=== PATIENT | male | born 1945 | race Caucasian/White ===

== ENCOUNTER 2023-05-17 13:29 | Emergency (ER) | payer OTHER ==
[2023-05-17 14:37] LABS: Specific Gravity 1.029 (1.005-1.030); Urine Bacteria <20 /HPF (<20); Urine Bilirubin NEGATIVE (Negative); Urine Blood Trace (Negative); Urine Clarity Clear (Clear); Urine Color Yellow (Yellow); Urine Glucose NEGATIVE (Negative); Urine Mucus 3+ /HPF (None Seen); Urine Protein TRACE (Negative); Urine RBC <5 /HPF (None Seen); Urine Urobilinogen Normal (Normal)
[2023-05-17 14:59] LABS: Absolute Lymphocytes (CBC) 1.3 K/uL (0.7-4.9); Lymphocytes % 22.8 % (15.3-44.8); MCV 95.1 fL (80-100); MPV 8.4 fL (7.6-11.3); RBC Red Blood Cell Count 4.73 M/uL (4.33-5.43)
[2023-05-17 15:18] LABS: Albumin 3.7 g/dL (3.4-5.0); Bilirubin Total 0.3 mg/dL (0.2-1.0); Potassium 3.9 mEq/L (3.5-5.1); Protein, Total 7.1 g/dL (6.4-8.2)
--- NOTE | 2023-05-17 17:40 | RAD REPORT ---
EXAM DESCRIPTION: CT - Abdomen Pelvis W Contrast - 05/17/2023 4:53 pm CLINICAL HISTORY: lower abdominal pain, dysuria COMPARISON: No comparisons TECHNIQUE: Thin cut axial CT imaging of the abdomen and pelvis was performed following intravenous a dministration of 100 mL Isovue 300. Multiplanar reformats were generated and reviewed. All CT scans are performed using dose optimization technique as appropriate and may include automated exposure control or mA/KV adjustment according to patient size. FINDINGS: No suspicious findings in the lung bases. The liver, spleen, and pancreas show no suspicious findings. Incidentally noted 1.5 centimeter anteri or right liver lobe fluid density cyst, not fully characterized. Gallbladder is contracted limiting e valuation. No evidence of intra or extrahepatic biliary ductal dilation. Symmetric renal function is seen with no hydronephrosis or suspicious renal mass. Bilateral renal co rtical cysts, the largest is exophytic arising from the mid to lower pole, measuring 6.6 centimeter. 4-5 millimeter calcific focus at the midpole, may represent a small calculus or cyst wall calcificati on No dilated bowel loops or bowel wall thickening. Colonic diverticulosis. Bilateral inguinal hernias c ontaining fat. No free air, free fluid or inflammatory stranding. No suspicious mass or bulky lymphad enopathy. The urinary bladder is without significant finding. Marked prostatomegaly with calcificatio ns. No suspicious bony findings. Grade 1 retrolisthesis of L5 over S1 secondary to facet degenerative h[place] nges IMPRESSION: No acute intra-abdominal process. Marked prostatomegaly, which could contribute to the patient's symptoms. Other incidental Findings as above.
--- NOTE | 2023-05-17 17:45 | EDPHYS ---
Physician Documentation [facility] Name: Galo Farooq Age: 78 yrs Sex: Male : 1945 Arrival Date: 05/17/2023 Time: 13:29 Bed 20 Private MD: Angus Ornelas ED Physician Edmond Rajan HPI: 05/17 13:45 This 78 yrs old Male presents to ER via Ambulatory with complaints of prostate issues. jmm 13:45 The patient presents with urinary symptoms, dysuria, urinary frequency. Onset: The jmm symptoms/episode began/occurred gradually. Modifying factors: The symptoms are alleviated by nothing, the symptoms are aggravated by nothing. This is an 78-year-old male with history of prostatic hyperplasia the presents emerged department with complaints of increased urinary frequency, painful urination also complains of constipation. Denies fever or vomiting.. Historical: - Allergies: 13:37 No Known Allergies; bp - Home Meds: 13:37 finasteride 1 mg oral tablet daily [Active]; bp - PMHx: 13:37 PROSTATE HYPERTROPHY; bp - Immunization history:: Adult Immunizations up to date. - Social history:: Smoking status: Patient denies any tobacco usage or history of. ROS: 13:45 Constitutional: Negative for fever, chills, and weight loss, Cardiovascular: Negative jmm for chest pain, palpitations, and edema, Respiratory: Negative for shortness of breath, cough, wheezing, and pleuritic chest pain. 13:45 : Positive for urinary symptoms. 13:45 All other systems are negative. Exam: 13:45 Constitutional: This is a well developed, well nourished patient who is awake, alert, jmm and in no acute distress. Head/Face: atraumatic. Eyes: EOMI, no conjunctival erythema appreciated ENT: Moist Mucus Membranes Neck: Trachea midline, Supple Chest/axilla: Normal chest wall appearance and motion. Cardiovascular: Regular rate and rhythm. No edema appreciated Respiratory: Normal respirations, no respiratory distress appreciated Abdomen/GI: Non distended Back: Normal ROM Skin: General appearance color normal MS/ Extremity: Moves all extremities, no obvious deformities appreciated, no edema noted to the lower extremities Neuro: Awake and alert Psych: Behavior is normal, Mood is normal, Patient is cooperative and pleasant Vital Signs: 13:38 BP 118 / 66; Pulse 65; Resp 16; Temp 97.8; Pulse Ox 97% ; Weight 72.57 kg; Height 5 ft. bp 5 in. ; 14:45 BP 112 / 67; Pulse 56; Resp 18; Pulse Ox 95% on R/A; ld1 15:58 BP 109 / 60; Pulse 86; Resp 18; Pulse Ox 96% on R/A; ld1 17:14 BP 111 / 75; Pulse 80; Resp 18; Pulse Ox 100% on R/A; ld1 13:38 Body Mass Index 26.63 (72.57 kg, 165.1 cm) bp MDM: 14:13 Patient medically screened. [facility] 18:44 Differential diagnosis: Acute prostatitis, urinary retention, urinary tract infection. [facility] Data reviewed: vital signs, nurses notes, lab test result(s), radiologic studies, CT scan. Consideration of Admission/Observation Escalation of care including admission/observation considered. 18:44 Counseling: I had a detailed discussion with the patient and/or guardian regarding: the [facility] historical points, exam findings, and any diagnostic results supporting the discharge/admit diagnosis, lab results, radiology results, the need for outpatient follow up, to return to the emergency department if symptoms worsen or persist or if there are any questions or concerns that arise at home. ED course: CT and labs were unremarkable. Due to the patient's difficulty with urination tamsulosin was added. Patient is currently taking finasteride. Advised follow with urology for further evaluation otherwise given strict return precautions. Patient understood and agrees to plan of care.. 05/17 13:44 Order name: Urinalysis w/ reflexes; Complete Time: 14:38 [facility] 05/17 14:36 Order name: CBC with Diff; Complete Time: 15:18 [facility] 05/17 14:36 Order name: CMP; Complete Time: 15:18 [facility] 05/17 14:36 Order name: Lipase; Complete Time: 15:18 [facility] 05/17 14:36 Order name: CT Abd/Pelvis - IV Contrast Only; Complete Time: 17:41 [facility] 05/17 14:36 Order name: IV Saline Lock; Complete Time: 14:54 [facility] 05/17 14:36 Order name: Labs collected and sent; Complete Time: 14:54 [facility] 05/17 14:36 Order name: Bladder Scanner; Complete Time: 14:44 [facility] Administered Medications: No medications were administered Disposition: 05/18 09:42 Co-signature as Attending Physician, Edmond Rajan MD I reviewed the patient's care rt provided by the Advanced Practice Provider and agree with the diagnosis and treatment plan. Disposition Summary: 05/17/23 17:45 Discharge Ordered Location: Home [facility] Condition: Stable [facility] Diagnosis - Enlarged prostate with lower urinary tract symptoms [facility] Followup: [facility] - With: Braden Arevalo MD - When: 2 - 3 days - Reason: Recheck today's complaints, Continuance of care, Re-evaluation by your physician Discharge Instructions: - Discharge Summary Sheet [facility] - Benign Prostatic Hyperplasia [facility] Forms: - Medication Reconciliation Form [facility] - Thank You Letter [facility] - Antibiotic Education [facility] - Prescription Opioid Use [facility] - [employer]_Portal_[email or web address].htm [facility] Prescriptions: - tamsulosin 0.4 mg Oral capsule - take 1 capsule by ORAL route every 24 hours for 30 days; 30 capsule; Refills: [facility] 0, Product Selection Permitted Signatures: Dispatcher [employer] Larry Ray PA PA jmm Peltier, Brian, RN RN Edmond Riddle MD MD rt
--- NOTE | 2023-05-17 17:45 | ER ---
Nurse's Notes [facility] Name: Galo Farooq Age: 78 yrs Sex: Male : 1945 Arrival Date: 05/17/2023 Time: 13:29 Bed 20 Private MD: Angus Ornelas Diagnosis: Enlarged prostate with lower urinary tract symptoms Presentation: 05/17 13:38 Chief complaint: Patient states: URINARY HESITANCY AND DYSURIA SINCE TUESDAY. bp Coronavirus screen: At this time, the client does not indicate any symptoms associated with coronavirus-19. Ebola Screen: No symptoms or risks identified at this time. Initial Sepsis Screen: Does the patient meet any 2 criteria? No. Patient's initial sepsis screen is negative. Does the patient have a suspected source of infection? No. Patient's initial sepsis screen is negative. Risk Assessment: Do you want to hurt yourself or someone else? Patient reports no desire to harm self or others. Onset of symptoms is unknown. 13:38 Method Of Arrival: Ambulatory bp 13:38 Acuity: CHLOE 3 bp Triage Assessment: 13:37 General: Appears distressed, uncomfortable, Behavior is cooperative, appropriate for bp age, anxious. Pain: Complains of pain in pelvis. EENT: No deficits noted. Neuro: No deficits noted. Cardiovascular: No deficits noted. Respiratory: No deficits noted. GI: No signs and/or symptoms were reported involving the gastrointestinal system. : Reports burning with urination, inability to void. Derm: No deficits noted. Musculoskeletal: No deficits noted. Historical: - Allergies: 13:37 No Known Allergies; bp - Home Meds: 13:37 finasteride 1 mg oral tablet daily [Active]; bp - PMHx: 13:37 PROSTATE HYPERTROPHY; bp - Immunization history:: Adult Immunizations up to date. - Social history:: Smoking status: Patient denies any tobacco usage or history of. Screenin:46 [facility] ED Fall Risk Assessment (Adult) History of falling in the last 3 months, ld1 including since admission No falls in past 3 months (0 pts). Abuse screen: Denies threats or abuse. Denies injuries from another. Nutritional screening: No deficits noted. Tuberculosis screening: No symptoms or risk factors identified. Assessment: 14:44 Reassessment: Bladder scanner performed - 0 mL of urine in bladder. ld1 14:45 General: Appears in no apparent distress. comfortable, Behavior is calm, cooperative, ld1 appropriate for age. Pain: Denies pain. Neuro: Level of Consciousness is awake, alert, obeys commands, Oriented to person, place, time, situation. Cardiovascular: Capillary refill < 3 seconds Patient's skin is warm and dry. Respiratory: Airway is patent Respiratory effort is even, unlabored. GI: Abdomen is flat, non-distended. : Reports burning with urination, urgency. EENT: No signs and/or symptoms were reported regarding the EENT system. Derm: No signs and/or symptoms reported regarding the dermatologic system. Musculoskeletal: No signs and/or symptoms reported regarding the musculoskeletal system. Vital Signs: 13:38 BP 118 / 66; Pulse 65; Resp 16; Temp 97.8; Pulse Ox 97% ; Weight 72.57 kg; Height 5 ft. bp 5 in. ; 14:45 BP 112 / 67; Pulse 56; Resp 18; Pulse Ox 95% on R/A; ld1 15:58 BP 109 / 60; Pulse 86; Resp 18; Pulse Ox 96% on R/A; ld1 17:14 BP 111 / 75; Pulse 80; Resp 18; Pulse Ox 100% on R/A; ld1 13:38 Body Mass Index 26.63 (72.57 kg, 165.1 cm) bp ED Course: 13:33 Patient arrived in ED. im 13:33 Angus Ornelas DO is Private Physician. im 13:37 Arm band placed on. bp 13:39 Triage completed. bp 13:43 Larry Garcia PA is PHCP. jmm 13:43 Edmond Rajan MD is Attending Physician. jmm 14:28 Urinalysis w/ reflexes Sent. ds4 14:30 Norma Cordoba, VITO is Primary Nurse. ld1 14:46 Patient has correct armband on for positive identification. Placed in gown. Bed in low ld1 position. Call light in reach. Side rails up X2. dry cleaning machine operator on. Pulse ox on. NIBP on. Door closed. Noise minimized. Warm blanket given. 14:46 No provider procedures requiring assistance completed. ld1 14:54 Inserted saline lock: 20 gauge in right antecubital area, using aseptic technique. ld1 Blood collected. 16:55 CT Abd/Pelvis - IV Contrast Only In Process Unspecified. EDMS 17:44 Braden Arevalo MD is Referral Physician. [facility] 18:06 IV discontinued, intact, bleeding controlled, No redness/swelling at site. ld1 Administered Medications: No medications were administered Medication: 14:46 VIS not applicable for this client. ld1 Outcome: 17:45 Discharge ordered by MD. [facility] 18:06 Discharged to home ambulatory. ld1 18:06 Condition: stable 18:06 Discharge instructions given to patient, family, Instructed on discharge instructions, follow up and referral plans. Demonstrated understanding of instructions, follow-up care. 18:06 Patient left the ED. ld1 Signatures: Dispatcher [employer] EDMS Larry Garcia PA PA Malachi Montelongo ds4 Irvin Martinez, VITO RN Norma Hernández RN RN ld1 Lindsey Borrego
[2023-05-17 19:09] VITALS: TEMP 97.8
[2023-05-17 19:13] VITALS: BP 111/75; O2SAT 100
== END 2023-05-17 18:06 | disposition home or self-care (01) ==
LOC: ER 13:29
DX: N40.1 Benign prostatic hyperplasia with lower urinary tract symptoms (principal)
CPT/HCPCS: 85025; 81001; 36415; 83690; 80053; 74177; Q9967

== ENCOUNTER 2025-03-26 09:56 | Emergency (ER) | payer OTHER ==
--- OUTSIDE RECORDS SUMMARY | 2025-03-26 10:02 | XMS REPORT | Continuity of Care Document ---
Author Name Unknown Address [address] [place] [id number] [facility] Address [address] [facility] [address] [place] [address] Care Team Providers Care Music Coordinator Name Role Phone Angus Ornelas Attending Clinician Unavailable [email or web address]_ Attending Clinician Unavail able [email or web address]_ Admitting Clinician Unavail able Encounters Start Date/Time End Date/Time Encounter Type Admission Type Attending Clinicians Care Facility Care Department Encounter ID Source 2024-07-11 09:45:00 Outpatient Johnson Angus [facility] [id number] [facility] 2023-01-07 10:51:03 Outpatient Angus Ornelas [facility] [id number] [facility] 2022-09-23 13:01:02 Outpatient Johnson Angus [facility] [id number] [facility] 2023-02-28 00:00:00 2023-02-28 00:00:00 Outpatient [facility] [id number] [facility]
[2025-03-26 10:48] LABS: Specific Gravity 1.028 (1.005-1.030); Sqamous Epithelial None Seen /HPF (None Seen); Transitional Epithelial <5 /HPF (None Seen); Urine Bacteria 20-50 /HPF (<20); Urine Bilirubin NEGATIVE (Negative); Urine Blood 2+ (Negative); Urine Clarity Extremely Turbid (Clear); Urine Color Yellow (Yellow); Urine Glucose NEGATIVE (Negative); Urine Ketones TRACE (Negative); Urine Micro Reflex YN NO BILL MICROSCOPIC; Urine Mucus 4+ /HPF (None Seen); Urine Nitrite NEGATIVE (Negative); Urine Protein 1+ (Negative); Urine Urobilinogen 1+ (Normal); Urine WBC 20-50 /HPF (<5); Urine pH 5.5 (5.0-7.0)
--- NOTE | 2025-03-26 10:56 | RAD REPORT ---
EXAMINATION: ULTRASOUND DUPLEX OF SCROTUM AND TESTICLES CLINICAL INDICATION: Male, 80 years, right testicular pain and swelling TECHNIQUE: Duplex scan of the scrotal contents was performed including real-time color and spectral D oppler ultrasonography with arterial inflow and venous outflow. COMPARISON: No prior exam. FINDINGS: RIGHT TESTICLE AND EPIDIDYMIS: The right testicle is normal in size, measuring 3.5 x 3.5 x 2.4 cm. There is significant elevated blood flow to the right testicle. No focal mass. Right epididymis demon strates significant elevated blood flow. Color Doppler flow in the right testicle is normal. Complex hydrocele is present, moderate. LEFT TESTICLE AND EPIDIDYMIS: The left testicle is normal in size, measuring 3.9 x 2.8 x 2.5 cm. Small cyst is suspected inferiorly in the left testicle. No aggressive mass evident. Mild rete testes dilatation. The left epididymis is normal. Color Doppler flow in the left testicle is normal. Small chronic hydrocele. IMPRESSION: Significant elevated blood flow detected to the right testicle and epididymis likely indicates right epididymitis-orchitis.
[2025-03-26] MEDS ORDERED: levoFLOXacin 250 MG TAB ONE (11:00)
--- NOTE | 2025-03-26 11:04 | EDPHYS ---
Physician Documentation [facility] Name: Galo Farooq Age: 80 yrs Sex: Male : 1945 Arrival Date: 03/26/2025 Time: 09:56 Bed 18 Private MD: ED Physician Mik Lopez HPI: 03/26 10:14 This 80 yrs old Male presents to ER via Ambulatory with complaints of scrotal pain and rn swelling. 10:14 The patient presents with scrotal pain, of the right side, with swelling. Onset: The rn symptoms/episode began/occurred yesterday. Modifying factors: The symptoms are alleviated by nothing, the symptoms are aggravated by pressure. Severity of symptoms: At their worst the symptoms were moderate, in the emergency department the symptoms are unchanged. The patient has not experienced similar symptoms in the past. Patient reports right scrotal/testicular pain and swelling. No trauma. No fever or chills. Patient reports has prostatomegaly but has never had testicular problem. No difficulty urinating. Hurts to touch and manipulate testicle. Historical: - Allergies: 10:11 No Known Allergies; hb - Home Meds: 10:11 finasteride 1 mg Oral tablet daily [Active]; hb - PMHx: 10:11 prostate hypertrophy; hb - Immunization history:: Adult Immunizations up to date. - Infectious Disease History:: Denies. - Social history:: Smoking status: Patient denies any tobacco usage or history of. - Family history:: not pertinent. - Hospitalizations: : No recent hospitalization is reported. ROS: 10:14 Constitutional: Negative for fever, chills, and weight loss, Abdomen/GI: Negative for rn abdominal pain, nausea, vomiting, diarrhea, and constipation, Back: Negative for injury and pain, : Positive for right testicular and scrotal swelling with pain Exam: 10:14 Constitutional: This is a well developed, well nourished patient who is awake, alert, rn and in no acute distress. Cardiovascular: Regular rate and rhythm. No pulse deficits. Male : Right hemiscrotum with swelling and tenderness, tender near epididymis. No necrosis or signs of cellulitis or extension towards perineum. Vital Signs: 10:10 BP 104 / 64; Pulse 68; Resp 16; Temp 98.3; Pulse Ox 100% on R/A; Pain 3/10; hb 11:07 BP 107 / 66; Pulse 61; Resp 18; Pulse Ox 100% on R/A; mb9 10:10 Pain Scale: Adult hb MDM: 10:04 Medical Screening Exam initiated rn 11:03 Differential diagnosis: UTI, Epididymitis, orchitis. Data reviewed: vital signs, nurses rn notes, lab test result(s), radiologic studies, ultrasound, and as a result, I will discharge patient. Counseling: I had a detailed discussion with the patient and/or guardian regarding the historical points, exam findings, and any diagnostic results supporting the discharge/admit diagnosis, lab results, radiology results, the need for outpatient follow up, to return to the emergency department if symptoms worsen or persist or if there are any questions or concerns that arise at home. Special discussion: I discussed with the patient/guardian in detail that at this point there is no indication for admission to the hospital. It is understood, however, that if the symptoms persist or worsen the patient needs to return immediately for re-evaluation. Based on the history and exam findings, there is no indication for further emergent testing or inpatient evaluation. I discussed with the patient/guardian the need to see the urologist for further evaluation of the symptoms. 11:05 ED course: Pt declines pain medication prescription. . rn 03/26 10:13 Order name: UA W/ Microscopic; Complete Time: 10:51 rn 03/26 10:13 Order name: US Scrotum Testicles; Complete Time: 10:57 rn Administered Medications: 11:02 Drug: LevOfloxacin PO 500 mg PO once Route: PO; mb9 11:07 Follow up: Response: No adverse reaction mb9 Disposition Summary: 03/26/25 11:04 Discharge Ordered Notes: Location: Home rn Problem: new rn Symptoms: have improved rn Condition: Stable rn Diagnosis - Epididymo-orchitis rn Followup: rn - With: Private Physician - When: As needed - Reason: Recheck today's complaints, Re-evaluation by your physician Discharge Instructions: - Discharge Summary Sheet rn - Epididymitis rn - Orchitis rn Forms: - Medication Reconciliation Form rn - Antibiotic diversity intern - Prescription Opioid Use rn - Patient Portal Instructions rn - Leadership Thank You Letter rn Prescriptions: - levofloxacin 500 mg Oral tablet - take 1 tablet ORAL route once daily for 10 days; 10 tablet; Refills: 0, Product rn Selection Permitted Signatures: Dispatcher [employer] EDMS Mik Lopez MD MD rn Baxter, Heather RN Latisha Comer RN RN mb9 Corrections: (The following items were deleted from the chart) 10: 10:14 Scrotum Testicles+US.RAD.BRZ ordered. EDMS EDMS 10: 10:14 UA W/ Microscopic+U.LAB.BRZ ordered. EDMS EDMS
--- NOTE | 2025-03-26 11:04 | ER ---
Nurse's Notes [facility] Name: Galo Farooq Age: 80 yrs Sex: Male : 1945 Arrival Date: 03/26/2025 Time: 09:56 Bed 18 Private MD: Diagnosis: Epididymo-orchitis Presentation: 03/26 10:10 Chief complaint: Right sided testicular swelling and pain x 2 days. Denies hb injury/fever/urinary symptoms. Coronavirus screen: At this time, the client does not indicate any symptoms associated with coronavirus-19. Ebola Screen: No symptoms or risks identified at this time. Initial Sepsis Screen: Does the patient meet any 2 criteria? No. Patient's initial sepsis screen is negative. Does the patient have a suspected source of infection? No. Patient's initial sepsis screen is negative. Risk Assessment: Do you want to hurt yourself or someone else? Patient reports no desire to harm self or others. Onset of symptoms was March 25, 2025. 10:10 Method Of Arrival: Ambulatory hb 10:10 Acuity: CHLOE 3 hb Historical: - Allergies: 10:11 No Known Allergies; hb - Home Meds: 10:11 finasteride 1 mg Oral tablet daily [Active]; hb - PMHx: 10:11 prostate hypertrophy; hb - Immunization history:: Adult Immunizations up to date. - Infectious Disease History:: Denies. - Social history:: Smoking status: Patient denies any tobacco usage or history of. - Family history:: not pertinent. - Hospitalizations: : No recent hospitalization is reported. Screenin:49 [facility] ED Fall Risk Assessment (Adult) History of falling in the last 3 months, mb9 including since admission No falls in past 3 months (0 pts) Confusion or Disorientation No (0 pts) Intoxicated or Sedated No (0 pts) Impaired Gait No (0 pts) Mobility Assist Device Used No (0 pt) Altered Elimination No (0 pt) Score/Fall Risk Level 0 - 2 = Low Risk Oriented to surroundings, Maintained a safe environment, Educated pt \T\ family on fall prevention, incl call for assistance when getting out of bed. Abuse screen: Denies threats or abuse. Nutritional screening: No deficits noted. Tuberculosis screening: No symptoms or risk factors identified. Assessment: 10:15 General: Appears in no apparent distress. Pain: Complains of pain in pelvis Pain does mb9 not radiate. Quality of pain is described as aching, crampy. Neuro: Jose Agitation-Sedation Scale (RASS): 0 - Alert and Calm Level of Consciousness is awake, alert, obeys commands, Oriented to person, place, time, situation, Appropriate for age. Cardiovascular: Patient's skin is warm and dry. Respiratory: Airway is patent Respiratory effort is even, unlabored, Respiratory pattern is regular, symmetrical. GI: No signs and/or symptoms were reported involving the gastrointestinal system. : Reports pain in right testicle. EENT: No signs and/or symptoms were reported regarding the EENT system. Derm: Skin is pink, warm \T\ dry. Musculoskeletal: Range of motion: intact in all extremities. 11:02 Reassessment: No changes from previously documented assessment. Patient and/or family mb9 updated on plan of care and expected duration. Pain level reassessed. Patient is alert, oriented x 3, equal unlabored respirations, skin warm/dry/pink. Vital Signs: 10:10 BP 104 / 64; Pulse 68; Resp 16; Temp 98.3; Pulse Ox 100% on R/A; Pain 3/10; hb 11:07 BP 107 / 66; Pulse 61; Resp 18; Pulse Ox 100% on R/A; mb9 10:10 Pain Scale: Adult hb ED Course: 10:03 Patient arrived in ED. al6 10:03 Mik Lopez MD is Attending Physician. rn 10:06 Latisha Garcia, VITO is Primary Nurse. mb9 10:11 Triage completed. hb 10:12 Arm band placed on. hb 10:15 Placed in gown. Bed in low position. Call light in reach. Side rails up X 1. Provided mb9 Education on: press call light if needing anything. Client placed on continuous cardiac and pulse oximetry monitoring. NIBP monitoring applied. 10:45 US Scrotum Testicles In Process Unspecified. EDMS 10:50 No provider procedures requiring assistance completed. mb9 11:02 Patient did not have IV access during this emergency room visit. mb9 Administered Medications: 11:02 Drug: LevOfloxacin PO 500 mg PO once Route: PO; mb9 11:07 Follow up: Response: No adverse reaction mb9 Medication: 10:49 VIS not applicable for this client. mb9 Outcome: 11:04 Discharge ordered by . vito 11:07 Discharged to home ambulatory, elysia9 11:07 Condition: stable 11:07 Discharge instructions given to patient, Instructed on discharge instructions, follow up and referral plans. Demonstrated understanding of instructions, follow-up care, medications, Prescriptions given X 1, :08 Patient left the ED. mb9 Signatures: Dispatcher [employer] EDMS Mik Lopez MD MD rn Baxter, Heather, RN RN hb Wilkerson, Mary Beth, RN RN mb9 Juanita Bee
== END 2025-03-26 11:08 | disposition home or self-care (01) ==
LOC: ER 09:56
DX: N45.3 Epididymo-orchitis (principal)
CPT/HCPCS: 76870; 81001; 99283

== ENCOUNTER 2025-07-01 03:07 | Emergency (ER) | payer OTHER ==
--- OUTSIDE RECORDS SUMMARY | 2025-07-01 03:09 | XMS REPORT | Continuity of Care Document ---
Author Name Unknown Address [address] [place] [id number] [place] [address] Address [address] [facility] [address] [place] [address] Care Team Providers Care Cloth Booker Name Role Phone Angus Ornelas Attending Clinician Unavailable Encounters Start Date/Time End Date/Time Encounter Type Admission Type Attending Clinicians Care Facility Care Department Encounter ID Source 2024-07-11 09:45:00 Outpatient Angus Ornelas [facility] [id number] [facility] 2023-01-07 10:51:03 Outpatient Angus Ornelas [facility] [id number] [facility] 2022-09-23 13:01:02 Outpatient Angus Ornelas [facility] [id number] [facility]
[2025-07-01 04:05] LABS: Absolute Lymphocytes (CBC) 1.2 K/uL (0.7-4.9); Hematocrit 43.8 % (39.6-49.0); Hemoglobin 15.2 g/dL (13.6-17.9); MCH 33.5 pg (27.0-35.0); MCHC 34.7 g/dL (32.0-36.0); MCV 96.4 fL (80-100); MPV 8.1 fL (7.6-11.3); Nucleated RBC Absolute Count 0.0 (0-0); Nucleated Red Blood Cells % 0.2 % (0-0); RBC Red Blood Cell Count 4.55 M/uL (4.33-5.43); White Blood Count 6.90 thou/uL (4.3-10.9)
[2025-07-01 04:10] LABS: Anion Gap 8.8 mEq/L (5.0-15.0); BUN Blood Urea Nitrogen 32.0 mg/dL (7-18); Glucose Level 110.0 mg/dL (74-106); Potassium 3.8 mEq/L (3.5-5.1)
[2025-07-01 05:24] LABS: Sqamous Epithelial <5 /HPF (None Seen); Urine Culture Reflex Order NOT NEEDED; Urine Microscopic Reflex YN ORDER UMIC; Urine Yeast (Budding) Trace /HPF (None Seen)
--- NOTE | 2025-07-01 05:30 | EDPHYS ---
Physician Documentation [facility] Name: Galo Farooq Age: 80 yrs Sex: Male : 1945 Arrival Date: 07/01/2025 Time: 03:07 Bed 14 Private MD: [facility] ED Physician Faisal Cordoba HPI: 07/01 04:25 This 80 yrs old Male presents to ER via Ambulatory with complaints of Urinary Retention.ms3 04:25 80-year-old male with past medical history of benign prostatic hyperplasia, arthritis, ms3 glaucoma presents to the emergency department for urinary retention. Patient states on he began having problems urinating and yesterday became unable to urinate. Patient states his discomfort is a 10/10 described as pressure. Patient states the pain is worse with movement or trying to pee. Patient notes he has been out of his tamsulosin for 2 days.. Historical: - Allergies: 03:47 No Known Allergies; tb4 - Home Meds: 03:47 finasteride 1 mg Oral tablet daily [Active]; methotrexate sodium 2.5 mg oral tablet 6 tb4 tabs every week [Active]; tamsulosin 0.4 mg oral capsule 1 cap daily [Active]; Timoptic Opht [Active]; bimatoprost 0.01 % ophthalmic (eye) drops [Active]; - PMHx: 03:47 prostate hypertrophy; Arthritis; Glaucoma; tb4 - PSHx: 03:47 Right Shoulder; tb4 - Immunization history:: Adult Immunizations up to date. - Infectious Disease History:: Denies. - Social history:: Smoking status: Patient denies any tobacco usage or history of. Patient/guardian denies using alcohol, occasional beer. ROS: 04:25 Constitutional: Negative for fever, and chills. Cardiovascular: Negative for chest ms3 pain, and palpitations. Respiratory: Negative for shortness of breath, cough, wheezing, and pleuritic chest pain, MS/Extremity: Negative for injury and deformity, Skin: Negative for injury, rash, and discoloration, 04:25 Abdomen/GI: Positive for abdominal pain, 04:25 : Positive for Urinary retention, Exam: 04:25 Constitutional: This is a well developed, well nourished patient who is awake, alert, ms3 and in no acute distress. Cardiovascular: Regular rate and rhythm with a normal S1 and S2. No gallops, murmurs, or rubs. Normal PMI, no JVD. No pulse deficits. Respiratory: Lungs have equal breath sounds bilaterally, clear to auscultation and percussion. No rales, rhonchi or wheezes noted. No increased work of breathing, no retractions or nasal flaring. 04:25 Skin: Warm, dry with normal turgor. Normal color with no rashes, no lesions, and no evidence of cellulitis. 04:25 Abdomen/GI: Inspection: abdomen appears normal, Bowel sounds: normal, Palpation: moderate abdominal tenderness, in the suprapubic area, Vital Signs: 03:42 BP 145 / 89; Pulse 58; Resp 17; Temp 98.1(O); Pulse Ox 98% on R/A; Weight 72.57 kg; tb4 Height 5 ft. 4 in. ; Pain 0/10; 03:56 BP 145 / 89; Pulse 58; Resp 18; Temp 98.1(O); Pulse Ox 98% on R/A; Weight 72.57 kg; tb4 Height 5 ft. 4 in. ; Pain 0/10; 04:54 BP 127 / 62; Pulse 59; Resp 18; Pulse Ox 99% on R/A; Pain 0/10; tb4 06:00 BP 103 / 50; Pulse 77; Resp 16 S; Pulse Ox 100% on R/A; ss12 03:56 Body Mass Index 27.46 (72.57 kg, 162.56 cm) tb4 03:42 Pain Scale: Adult tb4 03:56 Pain Scale: Adult tb4 04:54 Pain Scale: Adult tb4 MDM: 03:14 Medical Screening Exam initiated ms3 04:25 Differential diagnosis: UTI, urinary retention. ms3 05:32 Data reviewed: vital signs, nurses notes, lab test result(s), and as a result, I will ms3 discharge patient. Counseling: I had a detailed discussion with the patient and/or guardian regarding the historical points, exam findings, and any diagnostic results supporting the discharge/admit diagnosis, lab results, the need for outpatient follow up, to return to the emergency department if symptoms worsen or persist or if there are any questions or concerns that arise at home. Special discussion: I discussed with the patient/guardian in detail that at this point there is no indication for admission to the hospital. It is understood, however, that if the symptoms persist or worsen the patient needs to return immediately for re-evaluation. ED course: Patient symptoms resolved after Long catheter placed. UA does not reveal infection. Discussed with patient necessity to follow-up with urology or primary care physician in 2 to 3 days for Long catheter removal. Patient understands and agrees with plan. All questions were answered. Return precautions discussed include worsening symptoms, or any other concerns. 07/01 03:15 Order name: CBC with Diff; Complete Time: 04:25 ms3 07/01 03:15 Order name: BMP; Complete Time: 04:25 ms3 07/01 03:15 Order name: UA Rfx Hardik Cult if indicated; Complete Time: 05:29 ms3 07/01 03:15 Order name: Long; Complete Time: 04:20 ms3 07/01 05:29 Order name: Leg Bag; Complete Time: 06:41 ms3 Administered Medications: No medications were administered Disposition Summary: 07/01/25 05:29 Discharge Ordered Notes: Location: Home ms3 Condition: Stable ms3 Diagnosis - Urinary Retention ms3 Followup: ms3 - With: Angus Ornelas DO - When: 2 - 3 days - Reason: Recheck today's complaints Followup: ms3 - With: Private Physician - When: 2 - 3 days - Reason: Recheck today's complaints Discharge Instructions: - Discharge Summary Sheet ms3 - Acute Urinary Retention, Male, [id number] ms3 - Indwelling Urinary Catheter Care, Adult, [id number] ms3 Forms: - Medication Reconciliation Form ms3 - Antibiotic Education ms3 - Prescription Opioid Use ms3 - Patient Portal Instructions ms3 - Leadership Thank You Letter ms3 Prescriptions: - tamsulosin 0.4 mg Oral capsule - take 1 capsule ORAL route daily; 14 capsule; Refills: 0, Product Selection ms3 Permitted Signatures: Dispatcher [employer] Faisal Carbajal DO DO ms3 Ruth Ribera, RN RN tb4
--- NOTE | 2025-07-01 05:30 | ER ---
Nurse's Notes [facility] Name: Galo Farooq Age: 80 yrs Sex: Male : 1945 Arrival Date: 07/01/2025 Time: 03:07 Bed 14 Private MD: Angus Ornelas Diagnosis: Urinary Retention Presentation: 07/01 03:42 Chief complaint: Patient states: He has not been able to completely empty his bladder tb4 for pass four days. Coronavirus screen: At this time, the client does not indicate any symptoms associated with coronavirus-19. Ebola Screen: No symptoms or risks identified at this time. Risk Assessment: Do you want to hurt yourself or someone else? Patient reports no desire to harm self or others. Onset of symptoms was June 26, 2025. 03:42 Method Of Arrival: Ambulatory tb4 03:42 Acuity: CHLOE 3 tb4 04:55 Initial Sepsis Screen: Does the patient meet any 2 criteria? No. Patient's initial tb4 sepsis screen is negative. Does the patient have a suspected source of infection? No. Patient's initial sepsis screen is negative. Triage Assessment: 03:55 General: Appears uncomfortable, Behavior is calm, cooperative. Pain: Complains of pain tb4 in right lower quadrant and left lower quadrant Pain currently is 6 out of 10 on a pain scale. Quality of pain is described as pressure, Pain began four days ago Is intermittent, Alleviated by Not feeling the urge to urinate. Historical: - Allergies: 03:47 No Known Allergies; tb4 - Home Meds: 03:47 finasteride 1 mg Oral tablet daily [Active]; methotrexate sodium 2.5 mg oral tablet 6 tb4 tabs every week [Active]; tamsulosin 0.4 mg oral capsule 1 cap daily [Active]; Timoptic Opht [Active]; bimatoprost 0.01 % ophthalmic (eye) drops [Active]; - PMHx: 03:47 prostate hypertrophy; Arthritis; Glaucoma; tb4 - PSHx: 03:47 Right Shoulder; tb4 - Immunization history:: Adult Immunizations up to date. - Infectious Disease History:: Denies. - Social history:: Smoking status: Patient denies any tobacco usage or history of. Patient/guardian denies using alcohol, occasional beer. Screenin:00 [facility] ED Fall Risk Assessment (Adult) History of falling in the last 3 months, tb4 including since admission No falls in past 3 months (0 pts) Confusion or Disorientation No (0 pts) Intoxicated or Sedated No (0 pts) Impaired Gait No (0 pts) Mobility Assist Device Used No (0 pt) Altered Elimination No (0 pt) Score/Fall Risk Level 0 - 2 = Low Risk Oriented to surroundings, Maintained a safe environment. Abuse screen: Denies threats or abuse. Nutritional screening: No deficits noted. Tuberculosis screening: No symptoms or risk factors identified. Assessment: 04:00 Reassessment: See triage note. General: Appears comfortable, Behavior is calm, tb4 cooperative. Pain: Denies pain. Neuro: Level of Consciousness is awake, alert, obeys commands, Oriented to person, place, time, situation, Bank Consultant are equal bilaterally Moves all extremities. Full function Gait is steady, Speech is normal, Facial symmetry appears normal. Respiratory: Airway is patent Trachea midline Respiratory effort is even, unlabored, Respiratory pattern is regular, symmetrical. GI: Bowel sounds present X 4 quads. Patient c/o right and left lower abdominal pressure when having the urge to urinate. : Long in place to gravity drainage Urine is Tea colored Last void was June 26, 2025. Bladder is distended Reports inability to void, since pass four days urgency, since pass four days Denies discharge. EENT: No deficits noted. No signs and/or symptoms were reported regarding the EENT system. Derm: Skin is intact, is healthy with good turgor, Skin is moist, Skin is pink, warm \T\ dry. Skin temperature is warm. Musculoskeletal: No deficits noted. No signs and/or symptoms reported regarding the musculoskeletal system. Circulation, motion, and sensation intact. Capillary refill < 3 seconds, is brisk, in bilateral fingers. Range of motion: intact in all extremities. 05:00 Reassessment: Patient appears in no apparent distress at this time. Patient and/or ss12 family updated on plan of care and expected duration. Pain level reassessed. Patient is alert, oriented x 3, equal unlabored respirations, skin warm/dry/pink. 06:38 Reassessment: Patient appears in no apparent distress at this time. Patient and/or ss12 family updated on plan of care and expected duration. Pain level reassessed. Patient is alert, oriented x 3, equal unlabored respirations, skin warm/dry/pink. Vital Signs: 03:42 BP 145 / 89; Pulse 58; Resp 17; Temp 98.1(O); Pulse Ox 98% on R/A; Weight 72.57 kg; tb4 Height 5 ft. 4 in. ; Pain 0/10; 03:56 BP 145 / 89; Pulse 58; Resp 18; Temp 98.1(O); Pulse Ox 98% on R/A; Weight 72.57 kg; tb4 Height 5 ft. 4 in. ; Pain 0/10; 04:54 BP 127 / 62; Pulse 59; Resp 18; Pulse Ox 99% on R/A; Pain 0/10; tb4 06:00 BP 103 / 50; Pulse 77; Resp 16 S; Pulse Ox 100% on R/A; ss12 03:56 Body Mass Index 27.46 (72.57 kg, 162.56 cm) tb4 03:42 Pain Scale: Adult tb4 03:56 Pain Scale: Adult tb4 04:54 Pain Scale: Adult tb4 ED Course: 03:10 Patient arrived in ED. jj6 03:10 Angus Ornelas DO is Private Physician. jj6 03:12 Faisal Cordoba DO is Attending Physician. ms3 03:47 Triage completed. tb4 03:55 Arm band placed on right wrist. tb4 04:00 Patient has correct armband on for positive identification. Placed in gown. Bed in low tb4 position. Call light in reach. Side rails up X 1. Client placed on continuous cardiac and pulse oximetry monitoring. NIBP monitoring applied. Door closed. Lights dimmed. Warm blanket given. 04:20 UA Rfx Hardik Cult if indicated Sent. tb4 04:20 Inserted saline lock: 22 gauge in right antecubital area, using aseptic technique. tb4 Blood collected. Flushed with 10 mL NS. 04:21 Initial lab(s) drawn, by me, sent to lab. Urine collected: Long catheter specimen, tea tb4 colored, Amount Returned: 1200mL. Long cath inserted, using sterile technique, 16 Fr., by me, balloon inflated, to gravity drainage, urine specimen collected. 04:56 No provider procedures requiring assistance completed. tb4 05:29 Angus Ornelas DO is Referral Physician. ms3 06:38 Shy Begum, RN is Primary Nurse. ss12 06:40 IV discontinued, intact, bleeding controlled, No redness/swelling at site. Pressure ss12 dressing applied. 06:41 Provided Education on: plan of care. ss12 Administered Medications: No medications were administered Medication: 04:00 VIS not applicable for this client. tb4 Outcome: 05:29 Discharge ordered by MD. ms3 06:40 Discharged to home ambulatory, 12 06:40 Condition: stable 06:40 Discharge instructions given to patient, family, Instructed on discharge instructions, follow up and referral plans. catheter care Demonstrated understanding of instructions, follow-up care, Prescriptions given X , :41 Patient left the ED. ss12 Signatures: Faisal Cordoba DO DO ms3 Emerald Oliver jj6 Ruth Ribera, RN RN tb4 Shy Begum, VITO RN ss12
[2025-07-01 07:17] VITALS: TEMP 98.1
[2025-07-01 07:21] VITALS: BP 103/50; O2SAT 100
== END 2025-07-01 06:41 | disposition home or self-care (01) ==
LOC: ER 03:07
DX: R33.9 Retention of urine, unspecified (principal)
CPT/HCPCS: 36415; 51702; 80048; 81001; 85025; 99284